=== PATIENT | male | born 1995 | race Caucasian/White ===

== ENCOUNTER 2024-10-25 18:05 | Emergency (ER) | payer SELFPAY ==
[2024-10-25] VITALS (9 sets, daily range): BP systolic 82–113; BP diastolic 46–75; PULSE 71–102; RESP 16–19; TEMP 36.6–36.7; O2SAT 87–99; BMI 17.6
--- NOTE | 2024-10-25 18:23 | ECG_ITS ---
APPROVED REPORT Exam: Resting ECG HR:93 bpm ECG Measurements Heart Rate 93 AXES MA 151 P 42 QRSd 96 QRS 67 QT 335 T 59 QTc 386 Conclusion SINUS RHYTHM NORMAL ECG Electronically signed by : NEHA CRANDALL, 10/26/2024 22:22:39
--- NOTE | 2024-10-25 18:56 | ED_ITS ---
<Statement entered by Jose Armando Miguel MD - 10/25/24 22:45> THEO Attestation I was consulted by the THEO, and we discussed the complexity of problems being addressed. I approved the treatment and management plan for this patient's care in the emergency department, thus performing a substantial portion of the medical decision making. Jose Armando Miguel MD Discharge Plan Disposition Patient Disposition: Home, Self-Care Condition: Good Referrals Follow up/Referrals: Provider,Referral, [Primary Care Provider] - See instructions Activity Restrictions/Add. Instructions Additional Instructions/Restrictions: Please return to the emergency department for any worsening signs or symptoms. Clinical Impressions Clinical Impression: Medical clearance for incarceration Print Language Print Language: Romansh Discharge ED Provider: Jose Armando Miguel General Adult HPI General Chief complaint: Medical Clearance Stated complaint: Medical Clearance Time Seen by Provider: 10/25/24 18:10 Mode of Arrival: EMS Source of Information: Patient and Law Enforcement Description of Symptoms (Recalled from ER Triage Doc. by RN): pt presents for medical clearance with officer. pt with no complaints with assessment. History of Present Illness HPI narrative: 29-year-old male presents emergency department with PD for med clearance. Patient has no acute complaints, is obviously intoxicated, admits to drinking 1/5 today . Typically drinks around one half of 1/5 daily , denies any fever chills chest pain shortness of breath nausea vomiting abdominal pain, no extremity pain, no headache no lightheadedness no dizziness, no constipation or diarrhea no urinary type symptomatology, he is somewhat uncooperative with exam but denies any other real relevant past medical history except for tonsillectomy, takes no other medications at home, and is a current everyday smoker denies any other drug use. Triage vitals notable for low blood pressure, however upon reassessment when the patient was sat up blood pressure reading improved Onset (ago): unknown Related Data Allergies Allergy/AdvReac Type Severity Reaction Status Date / Time No Known Allergies Allergy Verified 10/25/24 18:12 [facility] Disclaimer: The information contained in this section may have been updated after the patient was seen, as this information can be updated by other users. Social History (Updated 10/25/24 @ 19:00 by TRAE Peralta) Smoking Status: Current every day smoker alcohol intake: current current occupational status: other Travel in the last 8 weeks: None Have you lived/traveled outside [place] in past 30 days?: No Contact w/someone who lives/traveled outside [place] past 30 days?: No Exposure to someone with infectious disease in past 14 days?: No Do you have a fever (greater than 100.4 F or 38 C)?: No Have you tested positive for COVID-19: No Exposed to someone with COVID-19 in past 14 days?: No Do you have a sore throat?: No Do you have a cough?: No Do you have any weakness?: No Do you have any diarrhea?: No Are you experiencing any unusual bleeding?: No Do you have any muscle aches/pain?: No Do you have any abdominal pain?: No Are you experiencing loss of taste or smell?: No ROS Obtained: Yes All systems reviewed & no additional complaints except as documented Physical Exam General General appearance: alert and appears intoxicated Comment: Obviously intoxicated Head Head exam: atraumatic and normocephalic Eye Eye exam: Present PERRL and EOMI ENT ENT exam: Present mucous membranes moist Neck Neck exam: Present normal inspection Chest Chest inspection: Present normal inspection and symmetric chest wall rise Respiratory Respiratory exam: Present normal lung sounds bilaterally; Absent respiratory distress, wheezes or stridor Cardiovascular Cardiovascular exam: Present regular rate and normal rhythm Abdominal Exam Abdominal exam: Present soft; Absent tenderness, guarding, rebound or rigidity Extremities Exam Extremities exam: Present normal inspection Neurological Exam Neurological exam: Present alert and oriented X3 Psychiatric Psychiatric exam: Present normal affect Skin Skin exam: Present warm and dry Medical Decision Making Medical Records Medical records reviewed: Yes I reviewed the patient's medical records. Screening: Per USPSTF and CDC recommendations, given the prevalence of disease in our region, it is our hospital?s policy to screen for HIV and viral Hepatitis for all patients aged 18 and over and those with ongoing risk factors. Sundeep Inquiry Pt receiving controlled substance: No Sundeep was queried for this patient: No Vital Signs: 10/25/24 18:09 10/25/24 18:12 10/25/24 18:15 Temperature 97.9 F Temperature Source Oral Pulse Rate 102 H 96 H Pulse Rate [Left Radial] 93 H Respiratory Rate 19 Blood Pressure 82/46 L 82/47 L Blood Pressure [Right Arm] 83/49 L Blood Pressure Mean [Right Arm] 60 02 Sat by Pulse Oximetry 98 99 97 Oxygen Delivery Method 10/25/24 18:17 04/21/25 18:22 10/25/24 18:24 Temperature Temperature Source Pulse Rate 97 H 71 93 H Pulse Rate [Left Radial] Respiratory Rate Blood Pressure 85/48 L 83/49 L 97/57 L Blood Pressure [Right Arm] Blood Pressure Mean [Right Arm] 02 Sat by Pulse Oximetry 95 87 L 99 Oxygen Delivery Method 10/25/24 18:30 10/25/24 18:45 10/25/24 19:10 Temperature 98.0 F Temperature Source Pulse Rate 91 H 97 H 96 H Pulse Rate [Left Radial] Respiratory Rate 16 Blood Pressure 93/59 L 95/58 L 113/75 Blood Pressure [Right Arm] Blood Pressure Mean [Right Arm] 02 Sat by Pulse Oximetry 97 96 Oxygen Delivery Method Room Air Medical Decision Narrative: 29-year-old male presents to the emergency department with PD for med clearance, differential diagnose include but not limited to alcohol abuse, alcohol intoxication among others. I discussed patient case with attending physician Dr. Miguel he saw and examined the patient as well. Patient's blood pressure reading has improved when patient sat up, EKG shows nonischemic changes normal sinus rhythm, patient has no other acute complaints, obviously intoxicated, physical exam is otherwise unremarkable, lung sounds are clear, no tachycardia, other vital signs within normal limits. Patient is cleared to be discharged to PD. Strict ED return precautions given. Patient voiced understanding of the current treatment plan/discharge plan. Critical Care Critical Care Time Critical Care Time: No
== END 2024-10-25 19:11 | disposition home or self-care (01) ==
PROVIDERS: Emergency Provider Student in an Organized Health Care Education/Training Program
DX: I95.9 Hypotension, unspecified (principal); Z01.89 Encounter for other specified special examinations
CPT/HCPCS: 93005; 99283